=== PATIENT | male | born 1970 | race Caucasian/White ===

== ENCOUNTER 2020-01-21 08:17 | Emergency (ER) | payer OTHER, SELFPAY ==
[2020-01-21 08:23] VITALS: BP 142/76; PULSE 80; RESP 16; TEMP 37.4
--- NOTE | 2020-01-21 09:00 | ED.GENADULT ---
HPI - General Adult General Chief complaint: Upper Respiratory Infection Stated complaint: sinus infection sore throat headache Time Seen by Provider: 01/21/20 09:00 Source: patient and RN notes reviewed Mode of arrival: ambulatory Limitations: no limitations History of Present Illness HPI narrative: 49-year-old male complains of upper respiratory infection, facial congestion, and facial pain, sore throat, and intermittent headache (not the worst of his life) for the past 5 days. Cold and flu medicine without relief. No facial swelling. Dry cough. No chest congestion. Rhinorrhea and nasal congestion. Sore throat. Pain bilateral. Hurts to swallow. No high fevers, drooling, neck or throat swelling. No chest pain or shortness of breath. No exacerbation factors. Denies nausea, vomiting, and abdominal pain. Tolerating liquids well. Remains active. Some parts of this dictation were generated by voice recognition software and may contain typographical and/or grammatical inaccuracies. Related Data Home Medications Medication Instructions Recorded Confirmed infliximab [Remicade] 100 mg IV MONTHLY 01/21/20 01/21/20 Allergies Allergy/AdvReac Type Severity Reaction Status Date / Time Penicillins Allergy Unknown Unknown Verified 01/21/20 08:46 Honey Bee Allergy Unknown puffed up Uncoded 06/15/14 18:49 Review of Systems Review of Systems: Narrative: CONSTITUTIONAL: Complains of fever. Denies chills, sweats. EYES: Denies visual changes, redness, discharge. ENT: Complains of rhinorrhea, congestion, facial congestion and pain, sore throat. Denies otalgia. CARDIOVASCULAR: Denies chest pain, palpitations, edema. RESPIRATORY: Denies dyspnea, wheezing. Complains of dry cough. GASTROINTESTINAL: Denies abdominal pain, nausea, vomiting, diarrhea. GENITOURINARY: Denies dysuria, hematuria, abnormal discharge. SKIN: Denies rash or itching. MUSCULOSKELETAL: Denies acute back pain, joint pain, or myalgia. NEUROLOGIC: Denies numbness or focal weakness. Complains of intermittent AVILA. PSYCHIATRIC: Denies anxiety or depression. All systems reviewed & are unremarkable except as noted in HPI and below. FORMERLY [facility], [facility] Past Medical History Medical History (Updated 01/22/20 @ 00:00 by Toro Holguin) Asthma Crohn's disease Surgical History Surgical History (Updated 01/21/20 @ 09:14 by DESTINY Medina) No significant past surgical history Family History Family History (Updated 01/21/20 @ 09:14 by DESTINY Medina) Father Hypertension Sibling Hypertension Asthma Other Family history of malignant neoplasm Social History Social History Smoking status: Never smoker Second hand tobacco smoke exposure: No Alcohol intake: current Alcohol use details: Occasional Substance use: never Living arrangements: with family Occupation/Education: occupation Gender identity (if verbalized by the patient): Male Comments At time of signature, agree with nurse past medical, surgical, social, and family history. There is no relevant family history pertinent to the presenting complaint. Exam Narrative: Exam Narrative: GENERAL: This is a well-nourished, well-developed patient, in no apparent distress. Talks in full sentences and ambulates with steady gait without dyspnea. HEAD: normocephalic, atraumatic. EYES: PERRL. Sclera clear/white. Vision is grossly intact. EARS: External ears normal, auditory canals clear and without drainage, TMs normal without perforation. Hearing grossly intact. NOSE: External nose normal with no obvious nasal discharge, nares with mild redness and enlarge turbinates, no rhinorrhea. THROAT: Mucous membranes moist, posterior pharynx with PND, moderate erythema, exudate to tonsils, +1 tonsils, no drainage, no concern for Peritonsillar abscess. No drooling, trismus, or neck swelling. NECK: Neck supple, non-tender without lympha
== END 2020-01-21 09:11 | disposition home or self-care (01) ==
PROVIDERS: Emergency Provider Nurse Practitioner Family
DX: J02.0 Streptococcal pharyngitis (principal); J45.909 Unspecified asthma, uncomplicated; K50.90 Crohn's disease, unspecified, without complications
CPT/HCPCS: 87804; 87880; 99213; G0463